=== PATIENT | female | born 1995 | race Hispanic/Latino ===

== ENCOUNTER 2018-05-24 10:50 | Day surgery (SDC) | payer MEDICAID ==
[2018-05-24] VITALS (7 sets, daily range): BP systolic 93–117; BP diastolic 45–73
[~2018-05-24] VITALS: Ht 157.5 cm; Wt 57.7 kg
[~2018-05-24 10:50] MED LIST: SODIUM CHLORIDE 0.9% 1000ML 1,000 ML IV ONE
[2018-05-24] MEDS ORDERED: PROPOFOL 10 MG/ML 20ML VIAL IV ONE ×2 (12:18→12:45)
[2018-05-24] MEDS ORDERED: DICY20TA11 PO (12:27)
[2018-05-24] MEDS ORDERED: LEVE500T8 PO (12:27)
[2018-05-24] MEDS ORDERED: AMOX500T2 PO (12:27)
[2018-05-24] MEDS ORDERED: ESOM40CA PO (12:27)
[2018-05-24] MEDS ORDERED: SUCR1TAB2 PO (12:27)
[2018-05-24] MEDS ORDERED: BIRTH CONTROL PO (12:27)
[2018-05-24] MEDS ORDERED: LIDOCAINE HCL-MPF 2% 5ML VIAL ONE (12:45)
== END 2018-05-24 13:40 | disposition home or self-care (01) ==
LOC: DAH 10:50
PROVIDERS: ATTEND Internal Medicine
DX: K31.89 Other diseases of stomach and duodenum (principal); K80.20 Calculus of gallbladder without cholecystitis without obstruction; G40.909 Epilepsy, unspecified, not intractable, without status epilepticus; Z98.890 Other specified postprocedural states
CPT/HCPCS: 36415; 43237; 43239; 84702; 88305; A4606; J2704 ×2; J7030; 43231; J3490